=== PATIENT | female | born 1995 | race African-American/Black ===

== ENCOUNTER 2018-07-31 09:51 | Emergency (ER) | payer MEDICAID ==
[~2018-07-31] VITALS: Ht 160 cm; Wt 51.0 kg
[2018-07-31] MEDS ORDERED: METHOCARBAMOL 500MG TABLET PO ONE (10:30)
[2018-07-31] MEDS ORDERED: KETOROLAC 30MG/ML VIAL IM ONE (10:30)
[2018-07-31] MEDS ORDERED: METHOCARBAMOL 500MG TABLET PO SCH (11:00)
[2018-07-31] MEDS ORDERED: KETOROLAC 30MG/ML VIAL IM SCH (11:00)
[2018-07-31] MEDS ORDERED: HYDROCODONE/ACETAMINOPHEN 5/325MG TABLET PO ONE (12:00)
[2018-07-31] MEDS ORDERED: HYDROCODONE/ACETAMINOPHEN 5/325MG TABLET ONE (12:16)
[2018-07-31 13:50] VITALS: BP 118/70
== END 2018-07-31 13:52 | disposition home or self-care (01) ==
LOC: ER 09:51
DX: S16.1XXA Strain of muscle, fascia and tendon at neck level, initial encounter (principal); X50.0XXA Overexertion from strenuous movement or load, initial encounter; Y93.89 Activity, other specified; Y92.89 Other specified places as the place of occurrence of the external cause; Y99.0 Civilian activity done for income or pay
CPT/HCPCS: 73030; 81025; 96372; 99283; J1885

== ENCOUNTER 2019-05-04 12:59 | Emergency (ER) | payer MEDICAID ==
[~2019-05-04] VITALS: Ht 160 cm; Wt 53.0 kg
[2019-05-04] MEDS ORDERED: ACETAMINOPHEN 325MG TABLET PO STA (23:42)
[2019-05-04] MEDS ORDERED: IBUPROFEN 600MG TABLET PO STA (23:42)
[2019-05-05 00:18] LABS: CHLORIDE 101 mEq/L (98-107)
[2019-05-05 00:19] LABS: HCG SCREEN NEGATIVE
[2019-05-05 00:20] LABS: HEMOGLOBIN. 12.9 g/dL (12.0-16.0); MEAN CORPUSCULAR HEMOGLOBIN 30.7 pg (28.0-32.0); MEAN CORPUSCULAR VOLUME 90.4 fL (81.0-99.0); MEAN PLATELET VOLUME 10.4 fl (7.4-10.4); PLATELET 120 x1000/uL (130-400); RED CELL DISTRIBUTION WIDTH 12.7 % (11.6-14.6)
[2019-05-05 01:05] LABS: ATYPICAL LYMPHOCYTES 3; PLATELET ESTIMATE SLIGHTLY DECREASED
[2019-05-05 01:11] LABS: CLARITY URINE CLEAR (CLEAR); COLOR URINE YELLOW (YELLOW); KETONES URINE TRACE (NEGATIVE); LEUKOCYTE ESTERASE URINE NEGATIVE (NEGATIVE); NITRITE URINE NEGATIVE (NEGATIVE); OCCULT BLOOD URINE 3+ (NEGATIVE); PROTEIN URINE TRACE (NEGATIVE); SPECIFIC GRAVITY URINE 1.031 (1.005-1.030)
[2019-05-05 02:30] VITALS: BP 117/62
== END 2019-05-05 02:49 | disposition home or self-care (01) ==
LOC: ER 12:59
DX: J11.1 Influenza due to unidentified influenza virus with other respiratory manifestations (principal); K29.70 Gastritis, unspecified, without bleeding; D72.819 Decreased white blood cell count, unspecified; D69.6 Thrombocytopenia, unspecified; N93.9 Abnormal uterine and vaginal bleeding, unspecified
CPT/HCPCS: 36415; 71045; 76705; 80053; 81003; 81025; 84484; 84703; 85025; 87804; 93005; 99284

== ENCOUNTER 2019-07-21 15:49 | Emergency (ER) | payer MEDICAID ==
[~2019-07-21] VITALS: Ht 160 cm; Wt 52.5 kg
[2019-07-21 18:32] LABS: BASOPHILS % 0.7 % (0.0-2.0); HEMATOCRIT. 38.2 % (36.0-48.0); HEMOGLOBIN. 13.2 g/dL (12.0-16.0); LYMPHOCYTES % 33.1 % (20.0-50.0); MEAN CORPUSCULAR HEMOGLOBIN 31.3 pg (28.0-32.0); MEAN CORPUSCULAR VOLUME 90.5 fL (81.0-99.0); MEAN PLATELET VOLUME 10.3 fl (7.4-10.4); MONOCYTES % 13.4 % (2.0-8.0); NEUTROPHILS % 51.8 % (40.0-76.0); PLATELET 143 x1000/uL (130-400); RED BLOOD CELL COUNT 4.22 mill/uL (4.2-5.4); RED CELL DISTRIBUTION WIDTH 12.6 % (11.6-14.6)
[2019-07-21 18:37] LABS: CHLORIDE 103 mEq/L (98-107)
[2019-07-21 18:55] VITALS: BP 122/76
[2019-07-21] MEDS ORDERED: IBUPROFEN 600MG TABLET PO NR (18:55)
[2019-07-21] MEDS: CYCLOBENZAPRINE 10MG TABLET PO NR (19:59)
== END 2019-07-21 21:22 | disposition home or self-care (01) ==
LOC: ER 15:49
DX: M94.0 Chondrocostal junction syndrome [Tietze] (principal)
CPT/HCPCS: 36415; 71045; 80053; 83880; 84484; 85025; 93005; 99285

== ENCOUNTER 2020-02-11 02:39 | Emergency (ER) | payer MEDICAID ==
[~2020-02-11] VITALS: Ht 160 cm; Wt 52.0 kg
[2020-02-11 06:01] LABS: CLARITY URINE TURBID (CLEAR); COLOR URINE YELLOW (YELLOW); KETONES URINE NEGATIVE (NEGATIVE); LEUKOCYTE ESTERASE URINE NEGATIVE (NEGATIVE); NITRITE URINE NEGATIVE (NEGATIVE); OCCULT BLOOD URINE TRACE (NEGATIVE); PH URINE >=9.0 (4.5-8.0); PROTEIN URINE NEGATIVE (NEGATIVE); SPECIFIC GRAVITY URINE 1.017 (1.005-1.030); UROBILINOGEN URINE 0.2 E.U./dL (0.2-1.0)
[2020-02-11 06:02] LABS: BASOPHILS % 0.6 % (0.0-2.0); EOSINOPHILS % 6.2 % (0.0-5.0); HEMATOCRIT. 36.9 % (36.0-48.0); HEMOGLOBIN. 12.4 g/dL (12.0-16.0); LYMPHOCYTES % 34.5 % (20.0-50.0); MEAN CORPUSCULAR HEMOGLOBIN 30.8 pg (28.0-32.0); MEAN CORPUSCULAR VOLUME 91.7 fL (81.0-99.0); MEAN PLATELET VOLUME 10.7 fl (7.4-10.4); MONOCYTES % 10.1 % (2.0-8.0); NEUTROPHILS % 48.6 % (40.0-76.0); PLATELET 124 x1000/uL (130-400); RED BLOOD CELL COUNT 4.03 mill/uL (4.2-5.4); RED CELL DISTRIBUTION WIDTH 13.3 % (11.6-14.6)
[2020-02-11 06:05] LABS: CHLORIDE 105 mEq/L (98-107)
[2020-02-11 06:12] LABS: *AMPHETAMINES SCREEN URINE NEGATIVE (NEGATIVE); CANNABINOID URINE SCREEN NEGATIVE (NEGATIVE); OPIATES URINE SCREEN NEGATIVE (NEGATIVE); PHENCYCLIDINE URINE SCREEN NEGATIVE (NEGATIVE)
[2020-02-11 06:13] LABS: *BARBITURATES SCREEN URINE NEGATIVE (NEGATIVE); *BENZODIAZEPINES SCREEN URINE NEGATIVE (NEGATIVE); *COCAINE SCREEN URINE NEGATIVE (NEGATIVE); METHADONE URINE SCREEN NEGATIVE (NEGATIVE)
[2020-02-11 06:16] LABS: B-HCG QUANTITATIVE < 1 mIU/mL (<3)
[2020-02-11] MEDS: TETRACAINE 0.5% OPHTH DROPS 4ML LEFTEYE ONE (08:08)
[2020-02-11] MEDS: FLUORESCEIN SODIUM 1MG/STRIP LEFTEYE ONE (08:08)
[2020-02-11 09:00] VITALS: BP 90/54
== END 2020-02-11 10:18 | disposition home or self-care (01) ==
LOC: ER 02:39
DX: N93.8 Other specified abnormal uterine and vaginal bleeding (principal); H10.9 Unspecified conjunctivitis; J45.909 Unspecified asthma, uncomplicated
CPT/HCPCS: 36415; 76830; 76856; 80053; 80305; 81003; 81025; 84702; 85025; 86850; 86900; 93005; 99285

== ENCOUNTER 2020-08-29 13:32 | Emergency (ER) | payer MEDICAID ==
[~2020-08-29] VITALS: Ht 160 cm; Wt 53.0 kg
[2020-08-29] MEDS ORDERED: IBUPROFEN 600MG TABLET PO STA (13:58)
[2020-08-29 15:38] LABS: CLARITY URINE CLEAR (CLEAR); COLOR URINE YELLOW (YELLOW); KETONES URINE NEGATIVE (NEGATIVE); LEUKOCYTE ESTERASE URINE TRACE (NEGATIVE); NITRITE URINE NEGATIVE (NEGATIVE); OCCULT BLOOD URINE NEGATIVE (NEGATIVE); PROTEIN URINE NEGATIVE (NEGATIVE); SPECIFIC GRAVITY URINE 1.024 (1.005-1.030)
[2020-08-29 15:53] VITALS: BP 133/77
== END 2020-08-29 15:53 | disposition home or self-care (01) ==
LOC: ER 13:32
DX: B34.9 Viral infection, unspecified (principal); R03.0 Elevated blood-pressure reading, without diagnosis of hypertension; Z20.822 Contact with and (suspected) exposure to COVID-19
CPT/HCPCS: 71045; 81003; 81025; 93005; 99285; C9803; U0003

== ENCOUNTER 2021-05-27 16:19 | Emergency (ER) | payer MEDICAID ==
[~2021-05-27] VITALS: Ht 160 cm; Wt 50.0 kg
[2021-05-27 16:40] VITALS: BP 127/70
== END 2021-05-27 16:59 | disposition home or self-care (01) ==
LOC: ER 16:19
DX: M79.605 Pain in left leg (principal); M79.604 Pain in right leg; J45.909 Unspecified asthma, uncomplicated
CPT/HCPCS: 82962; 99282